=== PATIENT | female | born 1995 | race Caucasian/White ===

== ENCOUNTER 2018-06-23 01:30 | Inpatient (IN) | payer OTHER ==
[~2018-06-23 01:30] MED LIST: DEXTROSE 5%-LACTATED RINGERS 1,000 ML IV SCH
[2018-06-23 02:56] VITALS: BMI 37.3
[2018-06-23 02:56] LABS: BASO % 0.5 % (0-2.0); EOS % 3.3 % (0-4.5); HEMATOCRIT 36.7 % (32.4-45.2); HEMOGLOBIN 12.2 GM/dL (10.7-15.3); LYMPH % 17.3 % (8-40); MCH 30.1 pg (25.7-33.7); MCHC 33.3 g/dl (32.0-36.0); MEAN CELL VOLUME 90.2 fl (80-96); MEAN PLT VOLUME 9.2 fl (7.5-11.1); MONO % 7.5 % (3.8-10.2); NEUT % 71.4 % (42.8-82.8); PLATELET COUNT 207 K/MM3 (134-434); RBC 4.07 M/mm3 (3.60-5.2); RDW 13.7 % (11.6-15.6); WHITE BLOOD COUNT 10.8 K/mm3 (4.0-10.0)
--- NOTE | 2018-06-23 03:06 | HP ---
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 Excessive wt gain in Suspected LGA fetus History Source: Patient, Medical Record Limitations to Obtaining History: No Limitations - Past Medical History MEDICAL MANAGEMENT TRAINER: No: Alzheimer's, CVA, Dementia, Migraine, Multiple Sclerosis, Peripheral Neuropathy, Parkinson's, Seizure, Syncope, TIA, Vertigo, Other Cardiovascular: No: AFIB, Aneurysm, Aortic Insufficiency, Aortic Stenosis, CAD, CHF, Deep Vein Thrombosis, HTN, Hyperlipdemia, OH, Mitral Insufficiency, Mitral Stenosis, Murmur, Pulmonary Hypertension, Other Pulmonary: No: Asthma, Bronchitis, Cancer, COPD, O2 Dependent, Pneumonia, Previously Intubated, Pulmonary Embolus, Pulmonary Fibrosis, Sleep Apnea, Other Gastrointestinal: No: Ascites, Cancer, Constipation, Crohn's Disease, Diverticulitis, Diverticulosis, Esophageal Varices, Gastritis, GERD, GI Bleed, Hemorrhoids, Hiatal Hernia, Inflamatory Bowel Disease, Irritable Bowel Disease, Pancreatitis, Peptic Ulcer Disease, Ulcerative Colitis, Other Hepatobiliary: No: Cirrhosis, Cholelithiasis, Cholecystitis, Choledocholithiasis , Hepatitis A, Hepatitis B, Hepatitis C, Other Renal/: No: Renal Failure, Renal Inusuff, BPH, Cancer, Hematuria, Hemodialysis , Neurogenic Bladder, Renal Calculi, UTI, Other Reproductive: No: Ectopic , Endometriosis, Fibroids, PID, Polycystic Ovary Syndrome, Postmenopausal, Other ...Para: 2 ( x 2) Heme/Onc: No: Anemia, B12 Deficiency, Bleeding Disorder, Cancer, Current Chemotherapy, Current Radiation Therapy, Hemochromatosis, Hypercoaguable State, Myeloproliferative Synd, Sickle Cell Disease, Sickle Cell Trait, Thrombocytopenia, Other Infectious Disease: No: AIDS, C-Diff, Herpes Zoster, HIV, MRSA, STD's, Tuberculosis, VREF, Other Psych: No: Addictions, Anxiety, Bipolar, Depression, Panic, Psychosis, Schizophrenia, Other Musculoskeletal: No: Bursitis, Chronic low back pain, Hemiparesis, Hemiplegia, Osteoarthritis, Paraplegia, Other Rheumatology: No: Fibromyalgia, Gout, Lupus, Rheumatoid Arthritis, Sarcoidosis, Vasculitis, Other ENT: No: Allergic Rhinitis, Sinusitis, Other Endocrine: No: Parth's Disease, [place]'s Disease, Diabetes Insipidus, Diabetes Mellitus, Hyperparathyroidism, Hyperthyroidism, Hypothyroidism, Osteopenia, SIADH, Other Dermatology: No: Basal Cell, Cellulitis, Eczema, Melanoma, Psoriasis, Squamous Cell, Other - Past Surgical History Past Surgical History: Yes: None Hx Myomectomy: No Hx Transabdominal Cerclage: No - Advance Directives Advance Directives: Yes: Living Will, Health Care Proxy - Smoking History Smoking history: Never smoked Have you smoked in the past 12 months: No - Alcohol/Substance Use Hx Alcohol Use: No History of Substance Use: reports: None - Social History Usual Living Arrangement: Yes: With Spouse, With Child ADL: Independent History of Recent Travel: No Home Medications - Allergies Allergies/Adverse Reactions: Allergies Allergy/AdvReac Type Severity Reaction Status Date / Time No Known Allergies Allergy Verified 12/26/13 12:50 - Home Medications Home Medications: Ambulatory Orders Vitamins (Sjr) - 1 tab PO DAILY 05/04/18 Family Disease History - Family Disease History Family Disease History: Other: Father (AVM, lung dz), Brother (AVM), Sister ( obesity) Review of Systems - Review of Systems Constitutional: reports: No Symptoms Eyes: reports: No Symptoms HENT: reports: No Symptoms Neck: reports: No Symptoms Cardiovascular: reports: No Symptoms Respiratory: reports: No Symptoms Gastrointestinal: reports: No Symptoms Genitourinary: reports: No Symptoms Breasts: reports: No Symptoms Reported Musculoskeletal: reports: No Symptoms Integumentary: reports: No Symptoms Neurological: reports: No Symptoms Endocrine: reports: No Symptoms Hematology/Lymphatic: reports: No Symptoms Psychiatric: reports: No Symptoms Pain Intensity: 5 Physical Exam - Maternity Vital Signs: Vital Signs Temperature 97.7 F 06/23/18 02:00 Pulse Rate 93 H 06/23/18 02:00 Respiratory Rate 20 06/23/18 02:00 Blood Pressure 123/82 06/23/18 02:00 O2 Sat by Pulse Oximetry (%) Constitutional: Yes: Well Nourished, No Distress, Calm Eyes: Yes: WNL, Conjunctiva Clear HENT: Yes: WNL, Atraumatic, Normocephalic Neck: Yes: WNL, Supple, Trachea Midline Cardiovascular: Yes: WNL, Regular Rate and Rhythm Lungs: Clear to auscultation, Normal air movement Breast(s): Yes: WNL - Abdominal Exam/OB Fundal Height: 40 Number of Fetuses: Single Presentation: Vertex Contractions: Yes Regularity: Irregular Intensity: Mild Monitor Mode: External Heart Rate (range): 150 Heart Rate Location: Midline Category: I Accelerations: Non-Uniform Decelerations: None - Vaginal Exam/OB Vaginal Bleediing: No Speculum Exam: No Dilatation (cm): 1 Effacement (%): 50 Amniotic Membrane Status: Leaking Amniotic Fluid: Yes: Clear Presentation: Vertex/Position Station: -2 (Gynecoid adequate pelvimetry, EFW ~4000g by Chemo's maneuvers) - Physical Exam Musculoskeletal: Yes: WNL Extremities: Yes: WNL Edema: Yes Edema: LLE: Trace, RLE: Trace Integumentary: Yes: WNL Deep Tendon Reflex Grade: Normal +2 ...Motor Strength: WNL Psychiatric: Yes: WNL, Alert, Oriented - Labs Lab Results: CBC, BMP 06/23/18 02:15 Hemorrhage Risk Assessment - Risk Factors Medium Risk Factors: Yes: None High Risk Factors: Yes: None Risk Score: 1 Risk Level: Medium Risk Imaging - Results Ultrasound: Report Reviewed Assessment/Plan 23yo P2 with at EGA 39 5/7wks admitted with SROM sonce 9pm today, in early spont labor. Plan to monitor labor progress. The pt with Category I tracing. We discussed the risks of shoulder dystocia, labor problems, etc. The pt declined elective C/S and wants a ERWIN.
[2018-06-23 03:10] LABS: INR 0.9 (0.83-1.09); PROTHROMBIN TIME (PATIENT) 10.6 SEC (9.7-13.0)
[2018-06-23 03:12] LABS: ACTIVATED PTT 29.5 SECONDS (25.2-36.5)
[2018-06-23 03:21] LABS: CALCIUM 8.5 mg/dL (8.5-10.1); CREATININE 0.4 mg/dL (0.55-1.3); POTASSIUM 3.8 mmol/L (3.5-5.1)
[2018-06-23] MEDS ORDERED: ELECTROLYTE-148 SOLN 500 ML IV ONE (06:05)
[2018-06-23] MEDS ORDERED: FENTANYL/BUPIVACAINE/NS/PF - PCEA - 50 ML DISP.SYRIN EP ONE (06:40)
[2018-06-23] MEDS ORDERED: NALOXONE HCL 0.4 MG/ML VIAL IVPUSH PRN (07:14)
[2018-06-23] MEDS ORDERED: FENTANYL/BUPIVACAINE/NS/PF - PCEA - 50 ML DISP.SYRIN EP SCH ×2 (07:15→08:12)
[2018-06-23] MEDS ORDERED: LIDOCAINE HCL 1% PRESERVATIVE FREE - 30ML VIAL ONE (07:20)
[2018-06-23] MEDS ORDERED: OXYTOCIN 20 UNITS in 0.9% NS 20 UNIT/1,000 ML INFUS.BAG IV ONE (07:20)
[2018-06-23] MEDS ORDERED: BENZOCAINE 20% 57 GM BOTTLE TP PRN (07:47)
[2018-06-23] MEDS ORDERED: METHYLERGONOVINE MALEATE 0.2 MG/1 ML AMP IM PRN (07:47)
[2018-06-23] MEDS ORDERED: WITCH HAZEL 50% (TUCKS) 40 PAD/JAR PAD TP PRN (07:47)
[2018-06-23] MEDS ORDERED: BENZOCAINE 28 GM HEMORRHOIDAL OINTMENT TP PRN (07:47)
[2018-06-23] MEDS ORDERED: BISACODYL 10 MG SUPP.RECT RC PRN (07:47)
[2018-06-23] MEDS: PRENATAL VITAMINS W/ FOLIC ACID TABLET (FP) PO SCH (09:52)
[2018-06-23] MEDS ORDERED: TUBERCULIN PPD 5 TU/0.1ML SYRINGE (IN PATIENT USE ONLY) ID ONE (13:00)
[2018-06-23] MEDS: IBUPROFEN 600 MG TABLET (FP) PO PRN (19:17)
[2018-06-23] MEDS: ACETAMINOPHEN 325 MG TABLET (FP) PO PRN (19:18)
--- NOTE | 2018-06-23 22:16 | PN ---
Delivery - Delivery Vaginal Delivery: No Problems, Spontaneous Type of Anesthesia: Epidural Episiotomy/Laceration: None EBL (cc): 300 Delivery, Single - Stages of Labor Date 1st Stage Initiatied: 06/22/18 Time 1st Stage Initiated: 21:00 Date 2nd Stage Initiated: 06/23/18 Time 2nd Stage Initiated: 07:20 Date of Delivery: 06/23/18 Time of Delivery: 07:28 Date Placenta Delivered: 06/23/18 Time Placenta Delivered: 07:31 Placenta: Yes: Spontaneous, Normal Configuration - Condition of Infant Lead Atg Developer/Supervisor Weaving Present: No Gender: Male Weight: 4.423 kg Position: Right, OA Total Hours ROM (Hrs/Mins): 10 hrs 31 min - 1 Minute Total Score: 9 5 Minutes Total Score: 9 - [place] Feeding Plan Initial Plan: Exclusive throughout hospitalization Benefits of Exclusively reinforced: Yes Remarks - Remarks Remarks: Uncomplicated
[2018-06-24 07:08] LABS: BASO % 0.4 % (0-2.0); EOS % 4.3 % (0-4.5); HEMATOCRIT 30.9 % (32.4-45.2); HEMOGLOBIN 10.7 GM/dL (10.7-15.3); LYMPH % 22.6 % (8-40); MCH 31.1 pg (25.7-33.7); MCHC 34.7 g/dl (32.0-36.0); MEAN CELL VOLUME 89.5 fl (80-96); MEAN PLT VOLUME 8.6 fl (7.5-11.1); MONO % 7.9 % (3.8-10.2); NEUT % 64.8 % (42.8-82.8); PLATELET COUNT 188 K/MM3 (134-434); RBC 3.45 M/mm3 (3.60-5.2); RDW 14.6 % (11.6-15.6); WHITE BLOOD COUNT 8.3 K/mm3 (4.0-10.0)
[2018-06-24] MEDS: PRENATAL VITAMINS W/ FOLIC ACID TABLET (FP) PO SCH (09:13)
[2018-06-24] MEDS: ELECTROLYTE-148 SOLN 1,000 ML IV SCH ×2 (13:26→13:27)
[2018-06-24] MEDS: OXYTOCIN 20 UNITS in 0.9% NS 20 UNIT/1,000 ML INFUS.BAG IV SCH (13:27)
[2018-06-24] MEDS: ACETAMINOPHEN 325 MG TABLET (FP) PO PRN (13:31)
[2018-06-24] MEDS: IBUPROFEN 600 MG TABLET (FP) PO PRN (13:31)
--- NOTE | 2018-06-24 16:30 | PN ---
Post Progress Note - Subjective Subjective: Patient without acute complaints. Reports tolerating oral intake without nausea or vomiting. Ambulating without dizziness. Denies fevers or chills. Pain well controlled with oral pain medication. Pumping/breast feeding without issue. Passing flatus, no BM. Post Day: 1 Type of Delivery: Vital Signs: Vital Signs Temperature 98.4 F 06/24/18 08:10 Pulse Rate 80 06/24/18 08:10 Respiratory Rate 20 06/24/18 08:10 Blood Pressure 111/66 06/24/18 08:10 O2 Sat by Pulse Oximetry (%) 99 06/23/18 07:20 Breast Exam: Yes: Soft Uterus: Yes: Fundus Firm, Fundus below umbilicus, Non-tender Abdomen/GI: Yes: Abdomen soft, Passing flatus, Tolerating PO Lochia: Yes: Rubra Lochia, amount: Small Extremities: Yes: Calves non-tender, Edema (trace) Perineum: Yes: Intact Activity: Ambulating - Labs Labs: CBC WBC 8.3 K/mm3 (4.0-10.0) 06/24/18 05:20 RBC 3.45 M/mm3 (3.60-5.2) L 06/24/18 05:20 Hgb 10.7 GM/dL (10.7-15.3) 06/24/18 05:20 Hct 30.9 % (32.4-45.2) L D 06/24/18 05:20 MCV 89.5 fl (80-96) 06/24/18 05:20 MCH 31.1 pg (25.7-33.7) 06/24/18 05:20 MCHC 34.7 g/dl (32.0-36.0) 06/24/18 05:20 RDW 14.6 % (11.6-15.6) 06/24/18 05:20 Plt Count 188 K/MM3 (134-434) 06/24/18 05:20 MPV 8.6 fl (7.5-11.1) 06/24/18 05:20 Absolute Neuts (auto) 5.4 K/mm3 (1.5-8.0) 06/24/18 05:20 Neutrophils % 64.8 % (42.8-82.8) 06/24/18 05:20 Lymphocytes % 22.6 % (8-40) D 06/24/18 05:20 Monocytes % 7.9 % (3.8-10.2) 06/24/18 05:20 Eosinophils % 4.3 % (0-4.5) 06/24/18 05:20 Basophils % 0.4 % (0-2.0) 06/24/18 05:20 Nucleated RBC % 0 % (0-0) 06/24/18 05:20 Assessment/Plan 23yo P3 s/p , doing well stable, afebrile. Asymptomatic for anemia. care instructions reviewed. Continue routine care. Ambulation encouraged Discharge instruction reviewed.
--- NOTE | 2018-06-24 16:34 | DS ---
Physical Exam-CASE MANAGEMENT COORDINATOR Vital Signs: Vital Signs Temperature 98.4 F 06/24/18 08:10 Pulse Rate 80 06/24/18 08:10 Respiratory Rate 20 06/24/18 08:10 Blood Pressure 111/66 06/24/18 08:10 O2 Sat by Pulse Oximetry (%) 99 06/23/18 07:20 Constitutional: Yes: No Distress, Calm, Obese Eyes: Yes: WNL, Conjunctiva Clear HENT: Yes: WNL, Atraumatic, Normocephalic Neck: Yes: WNL, Supple, Trachea Midline Cardiovascular: Yes: WNL, Regular Rate and Rhythm Respiratory: Yes: WNL, Regular, CTA Bilaterally Gastrointestinal: Yes: WNL, Normal Bowel Sounds, Soft, Abdomen, Obese ...Rectal Exam: Yes: Deferred Renal/: Yes: WNL Internal Exam Deferred: Yes ....Post : Yes: Uterus firm, Uterus non-tender, Slight lochia rubra Breast(s): Yes: WNL Musculoskeletal: Yes: WNL Extremities: Yes: WNL Edema: Yes Edema: LLE: Trace, RLE: Trace Integumentary: Yes: WNL Neurological: Yes: WNL, Alert, Oriented ...Motor Strength: WNL Psychiatric: Yes: WNL, Alert, Oriented Labs: CBC, BMP 06/24/18 05:20 06/23/18 02:15 Delivery - Delivery Vaginal Delivery: No Problems, Spontaneous Type of Anesthesia: Epidural Episiotomy/Laceration: None EBL (cc): 300 Delivery, Single - Stages of Labor Date 1st Stage Initiatied: 06/22/18 Time 1st Stage Initiated: 21:00 Date 2nd Stage Initiated: 06/23/18 Time 2nd Stage Initiated: 07:20 Date of Delivery: 06/23/18 Time of Delivery: 07:28 Date Placenta Delivered: 06/23/18 Time Placenta Delivered: 07:31 Placenta: Yes: Spontaneous, Normal Configuration - Condition of Front Clerk/Generation Manager Present: No Gender: Male Weight: 4.423 kg Position: Right, OA Total Hours ROM (Hrs/Mins): 10 hrs 31 min - 1 Minute Total Score: 9 5 Minutes Total Score: 9 - [place] Feeding Plan Initial Plan: Exclusive throughout hospitalization Benefits of Exclusively reinforced: Yes Remarks - Remarks Remarks: Uncomplicated Discharge Summary Reason For Visit: ADMIT LABOR Spont labor at term Procedures: Principal: Hospital Course: Normal recovery Condition: Good - Instructions Diet, Activity, Other Instructions: Physical activity Resume your normal everyday activity as tolerated no heavy lifting or exercise until seen by your surgeon. You may walk unlimited shaan of and climb stairs. You may resume driving the car when you feel safe and comfortable behind the wheel. No sexual activity as instructed. Wound care If you have a bandage, leave it on, and keep dry for 48-72 hours. After that time discard the outer bandage. If they are tapes on the skin under the out of bandage leave them in place. They will peel off in the next 7 to 10 days. Do Not Peel them off. You may shower the day after surgery. If there are tapes present on the skin, you may shower over them. Diet There are no dietary restrictions. Eat healthy, high-fiber foods. Drink 6 to 8 glasses of liquid each day. This will assist in keeping your bowels are regular. Pain management You may take Tylenol or acetaminophen or Ibuprofen (for example, Motrin, Advil etc.) from my pain prescription medication is ordered should be taken as prescribed for moderate to severe pain. Call MD for any of the following: Severe pain not relieved by medication Fever of 101 or higher Excessive bleeding or drainage on dressing Inability to urinate Referrals: Patrick Montes MD [Staff Physician] - Disposition: HOME - Home Medications Comprehensive Discharge Medication List: Ambulatory Orders Vitamins (Sjr) - 1 tab PO DAILY 05/04/18 Valtrex 500 mg PO BID 06/23/18
[2018-06-24 21:37] VITALS: TEMP 98.1
[2018-06-24] MEDS ORDERED: SENNOSIDES/DOCUSATE COMBO (SENNA PLUS) TABLET (UD) PO PRN (22:00)
[2018-06-25 08:05] VITALS: BP 117/72; PULSE 80
[2018-06-25] MEDS: PRENATAL VITAMINS W/ FOLIC ACID TABLET (FP) PO SCH (09:06)
--- NOTE | 2018-06-25 10:40 | PN ---
Post Progress Note - Subjective Subjective: No complaints, ready to go home. Post Day: 2 Type of Delivery: Vital Signs: Vital Signs Temperature 98.1 F 06/25/18 08:03 Pulse Rate 80 06/25/18 08:03 Respiratory Rate 18 06/25/18 08:03 Blood Pressure 117/72 06/25/18 08:03 O2 Sat by Pulse Oximetry (%) 99 06/23/18 07:20 Breast Exam: Yes: Soft Uterus: Yes: Fundus Firm, Fundus below umbilicus, Non-tender Abdomen/GI: Yes: Abdomen soft, Passing flatus, Tolerating PO Lochia: Yes: Rubra Lochia, amount: Small Extremities: Yes: Calves non-tender Perineum: Yes: Intact Activity: Ambulating - Labs Labs: CBC WBC 8.3 K/mm3 (4.0-10.0) 06/24/18 05:20 RBC 3.45 M/mm3 (3.60-5.2) L 06/24/18 05:20 Hgb 10.7 GM/dL (10.7-15.3) 06/24/18 05:20 Hct 30.9 % (32.4-45.2) L D 06/24/18 05:20 MCV 89.5 fl (80-96) 06/24/18 05:20 MCH 31.1 pg (25.7-33.7) 06/24/18 05:20 MCHC 34.7 g/dl (32.0-36.0) 06/24/18 05:20 RDW 14.6 % (11.6-15.6) 06/24/18 05:20 Plt Count 188 K/MM3 (134-434) 06/24/18 05:20 MPV 8.6 fl (7.5-11.1) 06/24/18 05:20 Absolute Neuts (auto) 5.4 K/mm3 (1.5-8.0) 06/24/18 05:20 Neutrophils % 64.8 % (42.8-82.8) 06/24/18 05:20 Lymphocytes % 22.6 % (8-40) D 06/24/18 05:20 Monocytes % 7.9 % (3.8-10.2) 06/24/18 05:20 Eosinophils % 4.3 % (0-4.5) 06/24/18 05:20 Basophils % 0.4 % (0-2.0) 06/24/18 05:20 Nucleated RBC % 0 % (0-0) 06/24/18 05:20 Assessment/Plan 23yo P3 s/p , doing well stable, afebrile. Asymptomatic for anemia. care instructions reviewed. Ambulation encouraged Discharge instruction reviewed. Advised to call MD with any problems D/c home today.
== END 2018-06-25 13:35 | disposition home or self-care (01) | DRG 807 ==
LOC: JLDR 01:30 → UNDOADMIN 01:30 → JERBED 01:30 → J3W 09:35
PROVIDERS: ADMIT Obstetrics & Gynecology; ATTEND Obstetrics & Gynecology
PROC: 10E0XZZ Delivery of Products of Conception, External Approach (ICD-10-PCS; principal; 2018-06-22)
DX: O98.52 Other viral diseases complicating childbirth (principal); Z37.0 Single live birth; B00.9 Herpesviral infection, unspecified; O99.02 Anemia complicating childbirth; D64.9 Anemia, unspecified; O99.214 Obesity complicating childbirth; E66.9 Obesity, unspecified; Z3A.39 39 weeks gestation of pregnancy
CPT/HCPCS: 36415; 59409; 80048; 85025; 85610; 85730; 86593; 86850; 86900; 86901; 87389